=== PATIENT | female | born 1995 | race Hispanic/Latino ===

== ENCOUNTER 2019-01-28 20:04 | Emergency (ER) | payer OTHER | END 2019-01-28 22:14 | disposition home or self-care (01) | LOC: EDH 20:04 | DX: S93.492A Sprain of other ligament of left ankle, initial encounter (principal); E80.4 Gilbert syndrome; Z90.49 Acquired absence of other specified parts of digestive tract; X58.XXXA Exposure to other specified factors, initial encounter; Y93.A1 Activity, exercise machines primarily for cardiorespiratory conditioning; Y92.39 Other specified sports and athletic area as the place of occurrence of the external cause; Y99.8 Other external cause status | CPT/HCPCS: 99281 ==

== ENCOUNTER 2019-09-29 18:20 | Emergency (ER) | payer OTHER ==
[2019-09-29] MEDS ORDERED: LIDOCAINE HCL 1% 20 ML VIAL ONE (19:35)
== END 2019-09-29 20:45 | disposition home or self-care (01) ==
LOC: EDH 18:20
DX: N76.4 Abscess of vulva (principal); F41.9 Anxiety disorder, unspecified; Z90.49 Acquired absence of other specified parts of digestive tract; E80.4 Gilbert syndrome; Z33.1 Pregnant state, incidental
CPT/HCPCS: 56405; 81025

== ENCOUNTER 2019-12-01 10:50 | Emergency (ER) | payer MEDICAID ==
[2019-12-01] MEDS ORDERED: ACETAMINOPHEN 325 MG TAB ONE (11:10)
[2019-12-01 11:26] LABS: BASOPHILS % (AUTO) 0.4 % (0.0-5.0); EOSINOPHILS % (AUTO) 2.4 % (0.0-8.0); HEMATOCRIT 37.8 % (36-48); LYMPHOCYTES % (AUTO) 26.3 % (21.0-51.0); MEAN CORPUSCULAR HEMOGLOBIN 29.6 pg (27.0-33.0); MEAN CORPUSCULAR HGB CONC 33.6 g/dL (32.0-36.0); MEAN CORPUSCULAR VOLUME 88.1 fL (79-99); MONOCYTES % (AUTO) 6.7 % (3.0-13.0); PLATELET COUNT (AUTO) 170 K/uL (130-400); RED BLOOD CELL COUNT(AUTO) 4.29 MIL/uL (4.00-5.50); RED CELL DISTRIBUTION WIDTH 13.6 % (11.0-15.5); WHITE BLOOD COUNT (AUTO) 5.1 K/uL (4.8-10.8)
[2019-12-01 11:38] LABS: APPEARANCE,URINE Clear (CLEAR); BILIRUBIN,URINE Negative (NEGATIVE); COLOR,URINE Yellow (YELLOW); GLUCOSE, URINE (UA) Negative (NEGATIVE); KETONES,URINE Negative (NEGATIVE); LEUKOCYTE ESTERASE ,URINE Trace (NEGATIVE); NITRATE,URINE Negative (NEGATIVE); OCCULT BLOOD,URINE Negative (NEGATIVE); PH,URINE 7.5 (5.0-8.0); PROTEIN,URINE Negative (NEGATIVE); UROBILINOGEN,URINE 0.2 mg/dL (0.2-1.0)
[2019-12-01 11:39] LABS: CREATININE 0.6 mg/dL (0.5-1.5); POTASSIUM 3.8 mmol/L (3.5-5.1)
[2019-12-01 11:43] LABS: ALBUMIN 3.4 g/dL (3.5-5.0); BILIRUBIN,TOTAL 0.9 mg/dL (0.2-1.0); TOTAL PROTEIN, SERUM 7.3 g/dL (6.0-8.3)
[2019-12-01 11:57] LABS: BACTERIA,URINE Rare /HPF (None Seen); RBC,URINE 0-1 /HPF (0-1); SQUAMOUS EPITHELIAL CELL,UR Rare /HPF (0-2); WBC,URINE 0-1 /HPF (0-1)
== END 2019-12-01 13:37 | disposition home or self-care (01) ==
LOC: EDH 10:50
DX: O23.41 Unspecified infection of urinary tract in pregnancy, first trimester (principal); F41.9 Anxiety disorder, unspecified; Z79.899 Other long term (current) drug therapy; Z3A.13 13 weeks gestation of pregnancy
CPT/HCPCS: 36415; 80053; 81001; 83690; 85025

== ENCOUNTER 2023-03-17 09:59 | Emergency (ER) | payer MEDICAID ==
[~2023-03-17] VITALS: Ht 157.5 cm; Wt 59.0 kg
[2023-03-17 10:22] LABS: BASOPHILS % (AUTO) 0.4 % (0.0-5.0); EOSINOPHILS % (AUTO) 4.3 % (0.0-8.0); HEMATOCRIT 38.4 % (36-48); LYMPHOCYTES % (AUTO) 37.5 % (21.0-51.0); MEAN CORPUSCULAR HEMOGLOBIN 29.2 pg (27.0-33.0); MEAN CORPUSCULAR HGB CONC 33.3 g/dL (32.0-36.0); MEAN CORPUSCULAR VOLUME 87.5 fL (79-99); NEUTROPHILS % (AUTO) 48.4 % (40.0-77.0); PLATELET COUNT (AUTO) 185 K/uL (130-400); RED BLOOD CELL COUNT(AUTO) 4.39 MIL/uL (4.00-5.50); RED CELL DISTRIBUTION WIDTH 13.3 % (11.0-15.5); WHITE BLOOD COUNT (AUTO) 4.9 K/uL (4.8-10.8)
[2023-03-17 10:37] LABS: CREATININE 0.6 mg/dL (0.5-1.5); POTASSIUM 3.9 mmol/L (3.5-5.1)
[2023-03-17 10:41] LABS: ALBUMIN 3.9 g/dL (3.5-5.0); TOTAL PROTEIN, SERUM 7.3 g/dL (6.0-8.3)
[2023-03-17 10:53] LABS: APPEARANCE,URINE CLEAR (CLEAR); BILIRUBIN,URINE NEGATIVE (NEGATIVE); COLOR,URINE LIGHT-YELLOW (YELLOW); GLUCOSE, URINE (UA) NEGATIVE (NEGATIVE); KETONES,URINE NEGATIVE (NEGATIVE); LEUKOCYTE ESTERASE ,URINE 25 Leu/uL (NEGATIVE); NITRATE,URINE NEGATIVE (NEGATIVE); OCCULT BLOOD,URINE SMALL (NEGATIVE); PROTEIN,URINE NEGATIVE (NEGATIVE); UROBILINOGEN,URINE 0.2 mg/dL (0.2-1.0)
[2023-03-17 10:55] LABS: HCG,QUALITATIVE URINE NEGATIVE (NEGATIVE)
[2023-03-17 11:03] LABS: BACTERIA,URINE RARE /HPF (None Seen); MUCUS,URINE RARE LPF (None Seen); SQUAMOUS EPITHELIAL CELL,UR RARE /HPF (0-2)
[2023-03-17] MEDS ORDERED: KETOROLAC 30MG VIAL (30MG/ML) IM ONE (12:00)
[2023-03-17] MEDS ORDERED: CEPH500B PO (13:04)
[2023-03-17] MEDS ORDERED: PHEN-847 PO (13:04)
[2023-03-17] MEDS ORDERED: IBUP-2070 PO (13:04)
[2023-03-17 13:12] VITALS: BP 104/70
== END 2023-03-17 13:12 | disposition home or self-care (01) ==
LOC: EDH 09:59
DX: N39.0 Urinary tract infection, site not specified (principal); R10.2 Pelvic and perineal pain; Z90.49 Acquired absence of other specified parts of digestive tract
CPT/HCPCS: 99285; 74176; 80053; 85025; 81001; 81025; 36415; 96372; J1885

== ENCOUNTER 2025-09-04 14:31 | Emergency (ER) | payer MEDICAID, OTHER ==
[~2025-09-04] VITALS: Ht 157.5 cm; Wt 71.7 kg
[~2025-09-04 14:31] MED LIST: CEPH500B PO; IBUP-1492 PO; PHEN-847 PO
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
--- NOTE | 2025-09-04 15:36 | HMCIMG ---
EXAM: CT Head Without IV contrast. CLINICAL HISTORY: head injury TECHNIQUE: Axial computed tomography images of the head/brain without intravenous contrast. COMPARISON: None provided. FINDINGS: BRAIN: No evidence of acute hemorrhage. No mass lesion. No CT evidence for acute territorial infarct. No midline shift or extra-axial collections. VENTRICLES: No hydrocephalus. ORBITS: The orbits are unremarkable. SINUSES AND MASTOIDS: The paranasal sinuses and mastoid air cells are clear. BONES: No fracture. SOFT TISSUES: Unremarkable. IMPRESSION: 1. No acute intracranial findings. /[place]
[2025-09-04] MEDS ORDERED: AMOX1TAB16 PO (15:46)
[2025-09-04 16:07] VITALS: BP 121/72; PULSE 92; RESP 16; TEMP 98.1; O2SAT 99
== END 2025-09-04 16:09 | disposition home or self-care (01) ==
LOC: EDH 14:31
DX: S61.032A Puncture wound without foreign body of left thumb without damage to nail, initial encounter (principal); S00.83XA Contusion of other part of head, initial encounter; R20.0 Anesthesia of skin; Z87.19 Personal history of other diseases of the digestive system; Z90.49 Acquired absence of other specified parts of digestive tract; Y04.1XXA Assault by human bite, initial encounter; Y93.89 Activity, other specified; Y92.128 Other place in nursing home as the place of occurrence of the external cause; Y99.0 Civilian activity done for income or pay
CPT/HCPCS: 99285; 70450; 90714; 96372; 90471; J1885